=== PATIENT | female | born 1955 | race Caucasian/White ===

== ENCOUNTER 2017-02-06 15:06 | Outpatient (CLI) | payer OTHER ==
--- OUTSIDE RECORDS SUMMARY | 2017-02-06 15:08 | XMS | Clinical Summary ---
:1955 Author Organization [facility] Address [address] [place] [id number] Phone Care Team Providers Name Role Phone , Primary Care Provider Unavailable Allergies Not on File Current Medications Not on file Active Problems Not on file Social History Tobacco Use Types Packs/Day Years Used Date Never Assessed Sex Assigned at Date Recorded Not on file Last Filed Vital Signs Not on file Plan of Treatment Not on file Results Not on filefrom Last 3 Months
--- NOTE | 2017-02-06 17:41 | RAD ---
FOUR VIEWS LUMBAR SPINE 02/06/17 HISTORY: Low back pain. COMPARISON: 01/24/16. FINDINGS: Again noted are six nonribbearing lumbar type vertebral bodies. Multilevel scattered osteophytes are present. The vertebral body heights and intervertebral disc spaces are within normal limits. No fra cture or subluxation is seen. 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 Prior study said femor al vein calcification which is a typographical error. It should read gonadal vein calcification. The re has been no interval change compared to the prior study. There is no abnormal translation of ivet on between flexion and extension views. IMPRESSION: Stable views lumbar spine with mild multilevel degenerative changes. No fracture or subluxation is s een. POS: OFF
== END 2017-02-06 15:07 | disposition home or self-care (01) ==
LOC: RAD 15:06
PROVIDERS: ATTEND Physical Medicine & Rehabilitation
DX: M47.26 Other spondylosis with radiculopathy, lumbar region (principal)
CPT/HCPCS: 72120